=== PATIENT | male | born 1950 | race Caucasian/White ===

== ENCOUNTER 2019-01-14 10:55 | Inpatient (IN) ==
[2019-01-14] MEDS ORDERED: Acetaminophen IV 1,000 MG/100 ML INFUS..BTL IVPB ONE (11:43)
[2019-01-14] MEDS ORDERED: Ringers Solution, Lactated 1,000 ML IVC SCH ×2 (12:00→15:51)
[2019-01-14] MEDS ORDERED: Ropivacaine/PF 0.5% 30 ML VIAL ONE (13:24)
[2019-01-14] MEDS ORDERED: ROPIVACAINE/PF/NS 0.25% 1 EACH SYRINGE INTRAART ONE (13:25)
[2019-01-14] MEDS ORDERED: *HR* FentaNYL (PF) 100 MCG/2 ML VIAL ONE ×2 (13:27→13:30)
[2019-01-14] MEDS ORDERED: *HR* Midazolam HCl 2 MG/2 ML VIAL ONE (13:27)
[2019-01-14] MEDS ORDERED: *HR* Succinylcholine 200 MG/10 ML VIAL IVP ONE (13:30)
[2019-01-14] MEDS ORDERED: Lidocaine -MPF 4% 5 ML AMPUL ONE (13:30)
[2019-01-14] MEDS ORDERED: Ondansetron 4 MG/2 ML VIAL ONE (13:30)
[2019-01-14] MEDS ORDERED: Dexamethasone 4 MG/ML VIAL ONE (13:30)
[2019-01-14] MEDS ORDERED: Lidocaine -MPF 2% 2 ML VIAL ONE (13:30)
[2019-01-14] MEDS ORDERED: *HR* Propofol 200 MG/20 ML VIAL IVP ONE (13:31)
[2019-01-14] MEDS ORDERED: Lidocaine HCL 4 ML Topical Solution (Laryng-O-Jet Kit Sterile Pak) TP ONE (13:33)
[2019-01-14] MEDS ORDERED: Ethanol\\Acetic Acid\\Na Ace\\Ben 1,000 ML IRRIG.SOLN IR ONE (13:57)
[2019-01-14 15:42] LABS: Hematocrit 40.6 % (37.5-50.1)
[2019-01-14 15:43] LABS: Hemoglobin 14.6 g/dL (12.9-16.9)
[2019-01-14] MEDS ORDERED: Morphine Sulfate Immed Rel 15 MG TABLET PO PRN (15:51)
[2019-01-14] MEDS ORDERED: Naloxone 0.4 MG/ML INJ IVP PRN (15:51)
[2019-01-14] MEDS ORDERED: Sennosides 8.6 MG TABLET PO PRN (15:51)
[2019-01-14] MEDS ORDERED: MOM Conc 10 ML UD.LIQ PO PRN (15:51)
[2019-01-14] MEDS ORDERED: Temazepam 15 MG CAPSULE PO PRN (15:51)
[2019-01-14] MEDS ORDERED: Ondansetron 4 MG/2 ML VIAL IVP PRN (15:51)
[2019-01-14] MEDS: Apixaban 5 MG TABLET PO SCH (21:49)
[2019-01-15] MEDS: Acetaminophen 325 MG TABLET PO PRN ×2 (02:09→16:08)
[2019-01-15 04:25] LABS: Hematocrit 41.1 % (37.5-50.1); Hemoglobin 15.2 g/dL (12.9-16.9)
[2019-01-15 04:43] LABS: BUN/Creatinine Ratio 14 (6-26); Blood Urea Nitrogen 15 mg/dL (8-23); Calcium 8.9 mg/dL (8.6-10.3); Carbon Dioxide 20 mEq/L (23-29); Chloride 106 mEq/L (98-107); Glucose 206 mg/dL (70-105); Osmolality,Calculated 289 (280-300); Potassium 4.1 mEq/L (3.5-5.1); Sodium 136 mEq/L (136-145); eGFR For African Americans > 60 (> 60); eGFR For Non-African Americans > 60 (> 60)
[2019-01-15] MEDS: Apixaban 5 MG TABLET PO SCH (08:19)
[2019-01-15 15:38] VITALS: BP 116/65
== END 2019-01-15 16:25 | disposition home or self-care (01) | DRG 483 ==
LOC: SAMDAY 10:55 → 3NENU 16:41
PROVIDERS: ADMIT Orthopaedic Surgery; ATTEND Orthopaedic Surgery

== ENCOUNTER 2019-06-09 09:23 | Observation (INO) ==
[2019-06-09] MEDS ORDERED: Nitroglycerin 0.4 MG TAB.SUBL SL PRN ×2 (09:26→11:35)
[2019-06-09] MEDS ORDERED: Aspirin 81 MG TAB.CHEW PO ONE (09:26)
[2019-06-09] MEDS ORDERED: Ondansetron 4 MG/2 ML VIAL IVP ONE (09:35)
[2019-06-09 10:11] LABS: INR 1.5; Prothrombin Time 17.5 Seconds (9.4-12.1)
[2019-06-09 10:14] LABS: Activated Partial Thrombo Time 35.1 Seconds (26.0-36.0)
[2019-06-09 10:15] LABS: BUN/Creatinine Ratio 17 (6-26); Blood Urea Nitrogen 19 mg/dL (8-23); Calcium 9.8 mg/dL (8.6-10.3); Carbon Dioxide 24 mEq/L (23-29); Chloride 104 mEq/L (98-107); Glucose 117 mg/dL (70-105); Osmolality,Calculated 287 (280-300); Potassium 3.6 mEq/L (3.5-5.1); Sodium 137 mEq/L (136-145); Troponin I < 0.03 ng/mL (< 0.04); eGFR For African Americans > 60 (> 60); eGFR For Non-African Americans > 60 (> 60)
[2019-06-09 10:19] LABS: Hematocrit 45.9 % (37.5-50.1); Hemoglobin 16.8 g/dL (12.9-16.9); Immature Platelets 1.7 % (1.1-6.1); Mean Corpuscular HGB Conc 36.6 g/dL (31.6-35.5); Mean Corpuscular Hemoglobin 32.4 pg (28.0-33.3); Mean Corpuscular Volume 88.4 fL (83.0-100.0); Mean Platelet Volume 9.3 fL (9.4-12.4); Platelet Count 128 K/mcL (140-400); Red Blood Count 5.19 M/mcL (4.19-5.50); Red Cell Distribution Width 12.4 % (11.5-14.5); Segmented Neutrophils % 76.4 %; White Blood Count 5.9 K/mcL (4.3-11.1)
[2019-06-09 10:20] LABS: Basophils % 0.5 %; Eosinophils # 0.1 K/mcL (0.0-0.6); Eosinophils % 1.4 %; Immature Granulocytes % 0.2 % (0-4); Lymphocytes # 0.8 K/mcL (0.6-4.6); Lymphocytes % 13.3 %; Monocytes # 0.5 K/mcL (0.0-1.3); Monocytes % 8.2 %; Neutrophils # 4.5 K/mcL (1.6-8.9)
[2019-06-09 11:50] LABS: Bilirubin,Urine Negative (Negative); Blood,Urine Negative (Negative); Clarity,Urine Clear (Clear); Color,Urine Yellow (Yellow); Glucose,Urine (UA) Normal (Normal); Ketones,Urine Negative (Negative); Leukocyte Esterase,Urine Negative (Negative); Nitrite,Urine Negative (Negative); Protein,Urine Negative (Neg-Trace); Specific Gravity,Urine 1.015 (1.010-1.025); Urobilinogen,Urine Normal (Normal)
[2019-06-09] MEDS: Gabapentin 300 MG CAPSULE PO SCH ×2 (16:50→23:48)
[2019-06-09] MEDS: Apixaban 5 MG TABLET PO SCH (21:15)
[2019-06-10 06:31] LABS: Basophils % 0.5 %; Eosinophils # 0.1 K/mcL (0.0-0.6); Eosinophils % 1.9 %; Hematocrit 42.6 % (37.5-50.1); Hemoglobin 15.5 g/dL (12.9-16.9); Immature Granulocytes % 0.2 % (0-4); Lymphocytes # 0.9 K/mcL (0.6-4.6); Lymphocytes % 20.4 %; Mean Corpuscular HGB Conc 36.4 g/dL (31.6-35.5); Mean Corpuscular Hemoglobin 31.6 pg (28.0-33.3); Mean Corpuscular Volume 86.8 fL (83.0-100.0); Mean Platelet Volume 9.3 fL (9.4-12.4); Monocytes # 0.7 K/mcL (0.0-1.3); Monocytes % 15.3 %; Neutrophils # 2.6 K/mcL (1.6-8.9); Platelet Count 115 K/mcL (140-400); Red Blood Count 4.91 M/mcL (4.19-5.50); Red Cell Distribution Width 12.4 % (11.5-14.5); Segmented Neutrophils % 61.7 %; White Blood Count 4.3 K/mcL (4.3-11.1)
[2019-06-10 06:38] LABS: INR 1.5; Prothrombin Time 16.5 Seconds (9.4-12.1)
[2019-06-10 06:55] LABS: Alanine Aminotransferase 26 Units/L (7-52); Albumin 3.8 g/dL (3.5-5.7); Albumin/Globulin Ratio 1.7 (1.1-2.2); Alkaline Phosphatase 48 Units/L (34-104); Aspartate Amino Transferase 15 Units/L (13-39); BUN/Creatinine Ratio 15 (6-26); Bilirubin,Total 0.6 mg/dL (0.3-1.0); Blood Urea Nitrogen 18 mg/dL (8-23); Calcium 8.8 mg/dL (8.6-10.3); Carbon Dioxide 24 mEq/L (23-29); Chloride 105 mEq/L (98-107); Globulin 2.2 g/dL (2.4-3.5); Glucose 122 mg/dL (70-105); Osmolality,Calculated 291 (280-300); Potassium 3.9 mEq/L (3.5-5.1); Sodium 139 mEq/L (136-145); eGFR For African Americans > 60 (> 60); eGFR For Non-African Americans > 60 (> 60)
[2019-06-10 08:18] VITALS: BP 116/53
[2019-06-10] MEDS ORDERED: Aspirin 81 MG TAB.CHEW PO SCH (09:00)
[2019-06-10] MEDS: Apixaban 5 MG TABLET PO SCH (09:36)
[2019-06-10] MEDS: Gabapentin 300 MG CAPSULE PO SCH (09:37)
== END 2019-06-10 10:20 | disposition home or self-care (01) ==
LOC: SUATTDRO → EMEROOARM 09:23 → 3BNU 09:23 → SUATTDRO 12:03 → 3BNU 12:20
PROVIDERS: ADMIT Family Medicine; ATTEND Internal Medicine